=== PATIENT | female | born 1980 ===

== ENCOUNTER 2019-07-23 09:42 | Emergency (ER) | payer OTHER ==
[~2019-07-23] VITALS: Ht 160 cm; Wt 111.6 kg
[~2019-07-23 09:42] MED LIST changes: -Tenormin25 MG PO
[2019-07-23 10:11] LABS: Source, Urine Clean Catch
[2019-07-23 10:19] LABS: Appearance, Urine Hazy (Clear); Bilirubin, Urine Neg (Neg); Blood, Urine 5+ (Neg); Glucose Qualitative, Urine Neg (Neg); Ketones, Urine 1+ (Neg); Leukocyte Esterase, Urine 2+ (Neg); Nitrite, Urine Neg (Neg); Protein, Urine 2+ (Neg); Specific Gravity, Urine 1.025 (1.003-1.022); Urobilinogen, Urine 1+ (Normal)
[2019-07-23 10:42] LABS: Color, Urine Yellow (P-Yellow)
[2019-07-23 10:43] LABS: White Blood Cells, Urine 50-100 /hpf (0-5)
[2019-07-23 10:44] LABS: Amorphous Heavy (0-Heavy); Bacteria Few /hpf; Red Blood Cells, Urine TNTC /hpf (0-2); Squamous Epithelial Cells Mod /hpf (Few)
[2019-07-23 11:04] LABS: BASOPHILS ABSOLUTE AUTO 0.03 K/mm3 (0.00-0.23); BASOPHILS PERCENT AUTO 0 % (0-2); EOSINOPHILS ABSOLUTE AUTO 0.18 K/mm3 (0.00-0.68); EOSINOPHILS PERCENT AUTO 2 % (0-6); Hematocrit 44.2 % (33.0-51.0); Hemoglobin 14.1 g/dL (11.5-16.0); IMMATURE GRAN ABSOLUTE AUTO 0.04 K/mm3 (0.00-0.10); IMMATURE GRAN PERCENT AUTO 0 % (0-1); LYMPHOCYTES ABSOLUTE AUTO 1.15 K/mm3 (0.84-5.20); LYMPHOCYTES PERCENT AUTO 10 % (21-46); MONOCYTES ABSOLUTE AUTO 0.65 K/mm3 (0.16-1.47); MONOCYTES PERCENT AUTO 6 % (4-13); Mean Corpuscular HGB 27.8 pg (26.0-34.0); Mean Corpuscular HGB Conc 31.9 g/dL (31.5-36.5); Mean Corpuscular Volume 87 fL (80-100); Mean Platelet Volume 12.9 fL (9.1-12.4); NEUTROPHILS ABSOLUTE AUTO 9.28 K/mm3 (1.96-9.15); NEUTROPHILS PERCENT AUTO 82 % (41-73); Platelet Count 215 K/mm3 (150-400); RDW Coefficient Variation 13.2 % (11.7-14.2); RDW Standard Deviation 41.8 fL (35.1-46.3); Red Blood Cell Count 5.08 M/mm3 (3.80-5.20); White Blood Cell Count 11.33 K/mm3 (4.00-11.30)
[2019-07-23 11:26] LABS: Anion Gap 6 mmol/L (6-16); Blood Urea Nitrogen 16 mg/dL (8-24); Bun/Creatinine Ratio 18.5 (12.0-20.0); CO2, Blood 26 mmol/L (21-32); Calcium, Blood 9.4 mg/dL (8.5-10.1); Chloride, Blood 108 mmol/L (98-108); Creatinine, Blood 0.87 mg/dL (0.40-1.00); Glomerular Filtration Rate >60 (60-); Glucose, Blood 111 mg/dL (70-99); Potassium, Blood 4.2 mmol/L (3.5-5.5); Sodium, Blood 140 mmol/L (136-145)
[2019-07-23] MEDS ORDERED: Tenormin25 MG PO (12:21)
== END 2019-07-23 12:29 | disposition home or self-care (01) ==
LOC: ER 09:42
PROVIDERS: Emergency Medicine
DX: I10 Essential (primary) hypertension (principal); Z79.899 Other long term (current) drug therapy
CPT/HCPCS: 36415; 71045; 80048; 81001; 81025; 85025; 87086; 93005; 93010; 99284-25

== ENCOUNTER → 2019-07-23 | Outpatient (CLI) | payer OTHER ==
[~2019-07-23] MED LIST: ALESSE; CIPR250 PO; DIPH25 PO; EXPECTA PRENAT1 EACH PO; IBUP800 PO; LABE200 PO; OXYACE5T PO; PRED20 PO; PROM25 PO; RELACOR; Tenormin25 MG PO; VALARIAN
== END | disposition home or self-care (01) ==
LOC: LAB 08:54 → LAB SHORT 08:54
DX: J02.9 Acute pharyngitis, unspecified (principal)
CPT/HCPCS: 87081

== ENCOUNTER → 2022-11-27 | Outpatient (CLI) | payer OTHER ==
[~2022-11-27] MED LIST changes: +Tenormin25 MG PO
[2022-11-28 16:07] LABS: HPV 16 Negative (Negative); HPV 18 Negative (Negative); HPV OTHER HR TYPES Negative (Negative)
== END | disposition home or self-care (01) ==
LOC: LAB SHORT 12:18 → LAB 12:18
PROVIDERS: Advanced Practice Midwife
DX: Z01.419 Encounter for gynecological examination (general) (routine) without abnormal findings (principal)
CPT/HCPCS: 87624; G0145